=== PATIENT | male | born 1990 | race Caucasian/White ===

== ENCOUNTER 2017-01-22 08:51 | Emergency (ER) | payer BC ==
[2017-01-22 09:15] VITALS: BMI 28.7
[2017-01-22 09:32] VITALS: RESP 16; TEMP 97.6; O2SAT 100
--- NOTE | 2017-01-22 10:46 | ED PDOC ---
Arrival/HPI - General Historian: Patient - History of Present Illness Time/Duration: 24 hours Symptom Onset: Gradual Symptom Course: Worsening Quality: Cramping Severity Level: Mild Activities at Onset: Light Context: Home <Ti Cortes - Last Filed: 01/22/17 12:28> <Sarai Velez PA-C - Last Filed: 01/22/17 12:52> - General Chief Complaint: GI Problem Time Seen by Provider: 01/22/17 10:01 - History of Present Illness Narrative History of Present Illness (Text): 01/22/17 10:42 Harrison Ayala is a 26 year old male who presents to the emergency room complaining of hematemesis since this morning. Patient states that he has experienced 2-3 episodes of vomiting earlier today and this morning, which were light-colored blood mixed with vomit. Patient notes that not all his vomit was blood. Afterwards, patient began to experience mild, intermittent cramping pain to his abdomen. Patient denies any fever, urinary symptoms, recent travels, chest pain, shortness of breath, back pain, neck pain, headache, dizziness, or any other complaints. (Ti Cortes) Past Medical History - Provider Review Nursing Documentation Reviewed: Yes - Infectious Disease Hx of Infectious Diseases: None - Psychiatric Hx Substance Use: No - Anesthesia Hx Anesthesia Reactions: No Hx Malignant Hyperthermia: No <Ti Cortes - Last Filed: 01/22/17 12:28> Family/Social History - Physician Review Nursing Documentation Reviewed: Yes Family/Social History: No Known Family HX Smoking Status: Never Smoked Hx Alcohol Use: Yes Hx Substance Use: No <Ti Cortes - Last Filed: 01/22/17 12:28> Allergies/Home Meds <Ti Cortes - Last Filed: 01/22/17 12:28> <Sarai Velez PA-C - Last Filed: 01/22/17 12:52> Allergies/Adverse Reactions: Allergies Sulfa (Sulfonamide Antibiotics) Allergy (Verified 01/17/17 14:00) SWELLING Review of Systems - Review of Systems Constitutional: absent: Fevers Eyes: absent: Vision Changes ENT: absent: Hearing Changes Respiratory: absent: SOB, Cough Cardiovascular: absent: Chest Pain Gastrointestinal: Abdominal Pain (Cramping), Vomiting, Hematemesis Genitourinary Male: absent: Urinary Output Changes Musculoskeletal: absent: Back Pain, Neck Pain Skin: absent: Rash Neurological: absent: Dizziness Endocrine: absent: Polyuria Hemo/Lymphatic: absent: Easy Bleeding Psychiatric: absent: Depression <Ti Cortes - Last Filed: 01/22/17 12:28> Physical Exam Vital Signs Reviewed: Yes Temperature: Afebrile Blood Pressure: Hypertensive Pulse: Tachycardic Respiratory Rate: Normal Appearance: Positive for: Well-Appearing, Non-Toxic, Comfortable Pain Distress: None Mental Status: Positive for: Alert and Oriented X 3 - Systems Exam Head: Present: Atraumatic, Normocephalic Pupils: Present: PERRL Extroacular Muscles: Present: EOMI Conjunctiva: Present: Normal Mouth: Present: Moist Mucous Membranes Neck: Present: Normal Range of Motion Respiratory/Chest: Present: Clear to Auscultation, Good Air Exchange. No: Respiratory Distress, Accessory Muscle Use Cardiovascular: Present: Regular Rate and Rhythm, Normal S1, S2. No: Murmurs Abdomen: Present: Normal Bowel Sounds. No: Tenderness, Distention, Peritoneal Signs Back: Present: Normal Inspection Upper Extremity: Present: Normal Inspection. No: Cyanosis, Edema Lower Extremity: Present: Normal Inspection. No: Edema Neurological: Present: GCS=15, CN II-XII Intact, Speech Normal Skin: Present: Warm, Dry, Normal Color. No: Rashes Psychiatric: Present: Alert, Oriented x 3, Normal Insight, Normal Concentration <Ti Cortes - Last Filed: 01/22/17 12:28> Vital Signs Temp Pulse Resp BP Pulse Ox 01/22/17 09:31 97.6 F 76 16 131/74 100 01/22/17 09:08 98.1 F 92 H 18 162/87 H 99 Medical Decision Making <Ti Cortes - Last Filed: 01/22/17 12:28> - Lab Interpretations I have reviewed the lab results: Yes Interpretation: All labs normal (K 3.3) <Sarai Velez PA-C - Last Filed: 01/22/17 12:52> ED Course and Treatment: 01/22/17 12:50 26 yo M presents with 1 day h/o vomiting and abdominal pain. Plan: -- Labs -- IV fluids -- Pepcid / Zofran -- Reassess and disposition On reevaluation, patient reports significant improvement, denies any nausea or abdominal pain at this time. On exam, patient is resting comfortably in bed in no acute distress. Abdomen remains soft with no tenderness to deep palpation, no rebound, no guarding. K is 3.3, given KCL 20mEq PO. Based on history, exam and diagnostic results plan will be for patient follow- up with PMD. Prescription provided. Patient states he fully agrees with and understands discharge instructions. States that he agrees with the plan and disposition. Verbalized and repeated discharge instructions and plan. I have given the patient opportunity to ask any additional questions. Follow up with primary care physician in 1-2 days without fail. Advised to take medication as prescribed. Return to the emergency room at any time for any new or worsening symptoms. (Agustin TELLEZ,Sarai Holman) - Lab Interpretations Lab Results: 01/22/17 11:00 01/22/17 11:00 Lab Results 01/22/17 11:00: WBC 5.7, RBC 5.25, Hgb 12.8 L, Hct 39.4 L, MCV 75.0 L, MCH 24.4 L, MCHC 32.5, RDW 14.6 H, Plt Count 265, MPV 11.0, Gran % 63.3, Lymph % (Auto) 29.8, [place] % (Auto) 6.5 H, Eos % (Auto) 0.2 L, Baso % (Auto) 0.2, Gran # 3.61, Lymph # 1.7, [place] # 0.4, Eos # 0.0, Baso # 0.01, Sodium 142, Potassium 3.3 L, Chloride 103, Carbon Dioxide 29, Anion Gap 13, BUN 11, Creatinine 0.7, Est GFR ( Amer) > 60, Est GFR (Non-Af Amer) > 60, Random Glucose 92, Calcium 9.4, Total Bilirubin 0.5, AST 38, ALT 44, Alkaline Phosphatase 51, Total Protein 7.9 , Albumin 4.5, Globulin 3.5, Albumin/Globulin Ratio 1.3, Lipase 45 - Medication Orders Current Medication Orders: Discontinued Medications Famotidine (Pepcid) 20 mg IVP STAT STA Stop: 01/22/17 11:01 Last Admin: 01/22/17 11:22 Dose: 20 MG IVP Administration Document 01/22/17 11:22 MMA (Rec: 01/22/17 11:22 [email or web address] Charges for Administration # of IVP Administrations 1 Sodium Chloride (Sodium Chloride 0.9%) 1,000 mls @ 1,000 mls/hr IV .Q1H STA Stop: 01/22/17 11:59 Last Admin: 01/22/17 11:21 Dose: 1,000 MLS/HR eMAR Start Stop Document 01/22/17 11:21 MMA (Rec: 01/22/17 11:22 [email or web address] Intravenous Solution Start Date 01/22/17 Start Time 11:22 End Date 01/22/17 End time 12:22 Total Infusion Time 60 Ondansetron HCl (Zofran Inj) 4 mg IVP STAT STA Stop: 01/22/17 11:01 Last Admin: 01/22/17 11:22 Dose: 4 MG IVP Administration Document 01/22/17 11:22 MMA (Rec: 01/22/17 11:22 [email or web address] Charges for Administration # of IVP Administrations 1 Potassium Chloride (Potassium Chloride Oral Soln) 20 meq PO STAT STA Stop: 01/22/17 12:36 - PA / HOSPITALIST MEDICAL DIRECTOR / Resident Statement / has reviewed & agrees with the documentation as recorded. - Scribe Statement The provider has reviewed the documentation as recorded by the Scribe <Ti Cortes - Last Filed: 01/22/17 12:28> - PA / HOSPITALIST MEDICAL DIRECTOR / Resident Statement / has reviewed & agrees with the documentation as recorded. <Sarai Velez PA-C - Last Filed: 01/22/17 12:52> - Scribe Statement Swati Hernandez Provider Scribe Attestation: All medical record entries made by the Scribe were at my direction and personally dictated by me. I have reviewed the chart and agree that the record accurately reflects my personal performance of the history, physical exam, medical decision making, and the department course for this patient. I have also personally directed, reviewed, and agree with the discharge instructions and disposition. (Ti Cortes) Disposition/Present on Arrival - Present on Arrival History of DVT/PE: No History of Uncontrolled Diabetes: No Urinary Catheter: No History of Decub. Ulcer: No History Surgical Site Infection Following: None <SophiaTi - Last Filed: 01/22/17 12:28> - Present on Arrival Any Indicators Present on Arrival: No History of DVT/PE: No History of Uncontrolled Diabetes: No Urinary Catheter: No History of Decub. Ulcer: No - Disposition Have Diagnosis and Disposition been Completed?: Yes Disposition Time: 12:36 Patient Plan: Discharge <Sarai Velez PA-C - Last Filed: 01/22/17 12:52> - Disposition Diagnosis: Vomiting, Abdominal pain Disposition: HOME/ ROUTINE Patient Problems: Current Active Problems Problem Status Diagnosed Abdominal pain Acute Vomiting Acute Condition: IMPROVED Discharge Instructions (ExitCare): Acute Nausea and Vomiting (ED), Abdominal Pain (ED) Print Language: CZECH Additional Instructions: Thank you for letting us take care of you today. You were treated for abdominal pain, vomiting. The emergency medical care you received today was directed at your acute symptoms. If you were prescribed any medication, please fill it and take as directed. It may take several days for your symptoms to resolve. Return to the Emergency Department if your symptoms worsen, do not improve, or if you have any other problems. Please contact your doctor in 2 days for re-evaluation and follow up. Bring any paperwork you were given at discharge with you along with any medications you are taking to your follow up visit. Our treatment cannot replace ongoing medical care by a primary care provider (PCP) outside of the emergency department. Thank you for allowing the [facility] team to be part of your care today. Prescriptions: Famotidine [Pepcid] 40 mg PO DAILY #20 tablet Ondansetron ODT [Zofran ODT] 4 mg PO DAILY PRN #20 odt PRN Reason: Nausea/Vomiting Forms: WORK NOTE
[2017-01-22] MEDS ORDERED: Sodium Chloride 0.9% 1,000 ML IV STA (11:00)
[2017-01-22 12:02] LABS: ADD MANUAL DIFF? NO
[2017-01-22 12:09] LABS: BASO # 0.01 K/mm3 (0.0-2.0); BASO % 0.2 % (0.0-3.0); EOS % 0.2 % (1.5-5.0); GRAN # 3.61 (1.4-6.5); GRAN % 63.3 % (50.0-68.0); HEMATOCRIT 39.4 % (42.0-52.0); LYMPH # 1.7 (1.2-3.4); LYMPH % 29.8 % (22.0-35.0); MEAN CORPUSCULAR HEMOGLOBIN 24.4 pg (25.0-35.0); MEAN CORPUSCULAR HGB CONC 32.5 g/dl (31.0-37.0); MONO # 0.4 (0.1-0.6); MONO % 6.5 % (1.0-6.0); PLATELET COUNT 265 10^3/uL (120.0-450.0); RED CELL DISTRIBUTION WIDTH 14.6 % (11.5-14.5); WHITE BLOOD COUNT 5.7 10^3/ul (4.5-11.0)
[2017-01-22 12:18] LABS: ALB/GLOB RATIO 1.3 (1.1-1.8); ALKALINE PHOSPHATASE 51 U/L (38-133); ALT/SGPT 44 U/L (7-56); AST/SGOT 38 U/L (15-59); BILIRUBIN,TOTAL 0.5 mg/dL (0.2-1.3); BLOOD UREA NITROGEN 11 mg/dL (7-21); CALCIUM 9.4 mg/dL (8.4-10.5); CARBON DIOXIDE 29 mmol/L (21-33); CHLORIDE 103 mmol/L (98-107); GFR AFRICAN-AMERICAN > 60; GLUCOSE,RANDOM 92 mg/dL (70-110); LIPASE 45 U/L (23-300); POTASSIUM 3.3 mmol/L (3.6-5.0); SODIUM 142 mmol/L (132-148); TOTAL PROTEIN 7.9 g/dL (5.8-8.3)
[2017-01-22] MEDS ORDERED: Potassium Chloride 20 mEq/15 ml LIQ UD PO STA (12:35)
[2017-01-22 13:08] VITALS: BP 123/74; PULSE 63
== END 2017-01-22 13:31 | disposition home or self-care (01) ==
LOC: ED 08:51
DX: R11.10 Vomiting, unspecified (principal); R10.9 Unspecified abdominal pain
CPT/HCPCS: 80053; 83690; 85025; 96361; 96374; 96375; 99284; J2405; J7040